=== PATIENT | male | born 1950 | race Caucasian/White ===

== ENCOUNTER → 2016-07-15 | Outpatient (REF) | payer MEDICARE, MEDICAID ==
[~2016-07-15] MED LIST: ACET500C PO; ALDA25TA2 PO; ATOR1TAB19 PO; CLAR10CA3 PO; DILA2TAB2 PO; DRIS50002 PO; FAMO20TA PO; FOLI1TAB2 PO; FURO40TA2 PO; LACT10SO29 PO; LACT20EL PO; LASI40TA PO; METO25TAB PO; METO50TA2 PO; NEUR100C PO; OXYC-517 PO; PANT40TA2 PO; PREG50CA PO; PYRI100T5 PO; SPIR100T PO; TYLE325T5 PO; VITA100T60 PO; VITA250T19 PO; VITA250T30 PO; VITMTA PO; VOLT1GEL24 TD; XIFA200T2 PO; XIFA550T PO; ZOFR20TA PO
[2016-07-15 11:57] LABS: ALBUMIN 2.6 GM/DL (3.2-5.2); ALBUMIN/GLOBULIN RATIO 0.68 (1.00-1.93); ALKALINE PHOSPHATASE 180 U/L (45-117); ALT/SGPT 24 U/L (12-78); ANION GAP 8 MEQ/L (8-16); AST/SGOT 38 U/L (15-37); BILIRUBIN,TOTAL 3.1 MG/DL (0.2-1.0); BLOOD UREA NITROGEN 11 MG/DL (7-18); CALCIUM LEVEL 9.2 MG/DL (8.8-10.2); CARBON DIOXIDE LEVEL 28 MEQ/L (21-32); CHLORIDE LEVEL 103 MEQ/L (98-107); GLOMERULAR FILTRATION RATE > 60.0 (>49); GLUCOSE, FASTING 152 MG/DL (80-110); POTASSIUM SERUM 4.8 MEQ/L (3.5-5.1); SODIUM LEVEL 139 MEQ/L (136-145); TOTAL PROTEIN 6.4 GM/DL (6.4-8.2)
== END ==
LOC: M SFHCLERA 09:51
PROVIDERS: ATTEND Family Medicine
DX: K72.90 Hepatic failure, unspecified without coma (principal)
CPT/HCPCS: 80053; 82140; G0463

== ENCOUNTER → 2016-07-21 | Outpatient (CLI) | payer MEDICARE, MEDICAID ==
--- NOTE | 2016-07-21 13:00 | REP ---
Right upper quadrant sonography: History: Cirrhosis, screening for malignancy. Comparison study CT examination from February 05, 2016. Findings: Scanning through the right upper quadrant of the abdomen demonstrates multiple shadowing calculi in the lumen of the gallbladder. There is some tenderness to scanning over the gallbladder. Its wall is slightly thickened at 0.35 centimeters. No pericholecystic fluid is seen. Common bile duct is at the upper range of normal measuring 0.7 cm. Liver is somewhat inhomogeneous. There is no visible ascites today. Pancreas is obscured by abdominal gas. There is a small cyst in the liver measuring 0.9 cm. There is a hypoechoic area adjacent to the gallbladder measuring 1.4 x 1.6 x 1.0 cm. This does not demonstrate enhanced through transmission and may be a solid lesion. There is no right renal abnormality. Right kidney measures 10.7 x 4.2 x 5.7 cm. Impression: 1.6 cm hypoechoic area in the right lobe of the liver adjacent to the gallbladder. This may be a small mass lesion. Consider repeat CT or MRI study. There is a small cyst in the left lobe. No ascites is visible today. Cholelithiasis. Signed by Jose Cruz Palma MD 07/21/2016 02:35 P
== END ==
LOC: M LRY 08:35
PROVIDERS: ATTEND Family Medicine
DX: K76.89 Other specified diseases of liver (principal); K80.20 Calculus of gallbladder without cholecystitis without obstruction

== ENCOUNTER → 2016-07-30 | Outpatient (CLI) | payer MEDICARE, MEDICAID ==
--- NOTE | 2016-07-30 16:08 | REP ---
MRI LIVER WITH AND WITH CONTRAST: TECHNIQUE: Coronal T2, axial T1, T2, T2 fat sat, in phase, out of phase, T1 fat sat, dynamic post-iv gadolinium axial T1 fat sat with the intravenous administration of 13 mL of gadolinium. Comparison is made with prior study of 10/23/2015. After the last MRI the patient had a negative biopsy. A recent ultrasound of the liver 07/21/2016 showed a possible mass near the gallbladder. The hyperechoic nodule on T1 weighed images on the prior study is no longer visualized. The liver is small in size than on the prior study. There are multiple tiny hypointense nodules seen throughout the liver all subcentimeter in size, both on T1 and T2 weighted images. These do not enhance. There is no suspicious enhancing mass seen after the intravenous administration of gadolinium. Spleen is normal in size with no intrinsic abnormality. The adrenals, pancreas and visualized kidneys appear unremarkable. I see no adenopathy or free fluid in the visualized abdomen. There is signal in the gallbladder compatible with sludge or stones. IMPRESSION: Findings compatible with cirrhosis of the liver. The liver appears small in size than on the prior study. The previously noted liver nodule near the gallbladder on the prior exam is not seen on the current study. The current exam shows multiple tiny subcentimeter nodules with signal and enhancement characteristics most consistent with regenerative nodules. No suspicious liver mass is seen. Signed by Jus Merino MD 07/31/2016 09:50 A
== END ==
LOC: M RAD 14:00
PROVIDERS: ATTEND Family Medicine
DX: K72.90 Hepatic failure, unspecified without coma (principal)
CPT/HCPCS: 74183; A9576

== ENCOUNTER → 2016-09-08 | Outpatient (CLI) | payer MEDICARE ==
--- NOTE | 2016-09-08 08:45 | REP ---
Clinical: Alcoholic cirrhosis. Technique: Real time perdue scale and color Doppler evaluation using curved array transducer. Findings: The liver appears heterogeneous and coarsened with vague sub centimeter nodular changes and sub centimeter cysts consistent with history of cirrhosis. No discrete significant hepatic lesion is identified by ultrasound. The gallbladder is contracted with multiple gallstones and demonstrates mild wall thickening without pericholecystic fluid. No biliary ductal dilatation is appreciated and the common bile duct measures 6 mm diameter. The spleen is essentially normal in contour, echogenicity and size measuring 10 cm in craniocaudal length. The bilateral kidneys demonstrate renovascular calcifications and cortical thinning with increased sinus fat compatible with chronic medical renal disease. No hydronephrosis. Right kidney measures 9.8 x 5.0 x 5.7 cm. Left kidney measures 10.7 x 5.7 x 5.7 cm. The aorta demonstrates atherosclerotic changes and measures 2.3 cm maximal diameter. Limited color evaluation and Doppler interrogation demonstrates abdominal varices including recanalized umbilical vein and suspected reversed flow in the splenic vein. Impression: Changes compatible with cirrhosis and portal venous hypertension. Cholelithiasis. Chronic medical renal disease. Signed by William Saleem MD 09/08/2016 08:37 A
== END ==
LOC: M RAD 07:19
PROVIDERS: ATTEND Internal Medicine Gastroenterology
DX: K80.20 Calculus of gallbladder without cholecystitis without obstruction (principal); N18.9 Chronic kidney disease, unspecified; K76.6 Portal hypertension; K70.30 Alcoholic cirrhosis of liver without ascites; D64.9 Anemia, unspecified; R94.5 Abnormal results of liver function studies; R63.5 Abnormal weight gain; I85.11 Secondary esophageal varices with bleeding; G93.40 Encephalopathy, unspecified

== ENCOUNTER → 2016-09-22 | Outpatient (REF) | payer MEDICARE, MEDICAID | LOC: M SFHCLERA 09:17 | PROVIDERS: ATTEND Family Medicine | DX: Z13.1 Encounter for screening for diabetes mellitus (principal); Z79.899 Other long term (current) drug therapy | CPT/HCPCS: 83036; G0463 ==

== ENCOUNTER → 2016-11-14 | Outpatient (REF) | payer MEDICARE, MEDICAID ==
[2016-11-14 14:03] LABS: CALCIUM LEVEL 9.2 MG/DL (8.8-10.2); CREATININE FOR GFR 2.06 MG/DL (0.70-1.30); GLOMERULAR FILTRATION RATE 34.6 (>49); POTASSIUM SERUM 4.1 MEQ/L (3.5-5.1)
== END ==
LOC: M SFHCLERA 11:16
PROVIDERS: ATTEND Family Medicine
DX: K72.90 Hepatic failure, unspecified without coma (principal); N17.9 Acute kidney failure, unspecified
CPT/HCPCS: 80048; 81001; 82140; G0463

== ENCOUNTER → 2016-11-19 | Outpatient (REF) | payer MEDICARE, MEDICAID ==
[2016-11-19 18:37] LABS: CALCIUM LEVEL 9.1 MG/DL (8.8-10.2); CREATININE FOR GFR 1.5 MG/DL (0.70-1.30); GLOMERULAR FILTRATION RATE 49.8 (>49); POTASSIUM SERUM 4.3 MEQ/L (3.5-5.1)
== END ==
LOC: M SFHCLERA 13:47
PROVIDERS: ATTEND Family Medicine
DX: N17.9 Acute kidney failure, unspecified (principal)

== ENCOUNTER → 2017-02-13 | Outpatient (CLI) | payer MEDICARE, MEDICAID ==
[~2017-02-13] MED LIST changes: -DILA2TAB2 PO; +DILA2TAB6 PO; -FOLI1TAB2 PO; +FOLI1TAB4 PO; +METO25TA4 PO; -METO50TA2 PO; +METO50TA7 PO; +VOLT1GEL15 TD; -VOLT1GEL24 TD
[2017-02-13 16:22] LABS: MEAN CORPUSCULAR HEMOGLOBIN 33.4 pg (27.0-33.0); MEAN CORPUSCULAR HGB CONC 34.5 g/dl (32.0-36.5); MEAN CORPUSCULAR VOLUME 96.7 fl (80.0-96.0); RED CELL DISTRIBUTION WIDTH 16.6 % (11.5-14.5)
== END ==
LOC: M LRY 10:17
PROVIDERS: ATTEND Internal Medicine Gastroenterology
DX: K70.30 Alcoholic cirrhosis of liver without ascites (principal); K72.90 Hepatic failure, unspecified without coma; L29.9 Pruritus, unspecified

== ENCOUNTER → 2017-03-23 | Outpatient (CLI) | payer MEDICARE, MEDICAID ==
[2017-03-23 12:36] LABS: MEAN CORPUSCULAR HGB CONC 34.7 g/dl (32.0-36.5); MEAN CORPUSCULAR VOLUME 95.2 fl (80.0-96.0); RED CELL DISTRIBUTION WIDTH 16.8 % (11.5-14.5); WHITE BLOOD COUNT 9.3 10^3/uL (4.0-10.0)
[2017-03-23 12:39] LABS: CALCIUM LEVEL 8.2 MG/DL (8.8-10.2); CREATININE FOR GFR 1.74 MG/DL (0.70-1.30); GLOMERULAR FILTRATION RATE 41.9 (>49); POTASSIUM SERUM 4.6 MEQ/L (3.5-5.1)
== END ==
LOC: M LRY 10:19
PROVIDERS: ATTEND Internal Medicine Gastroenterology
DX: K70.30 Alcoholic cirrhosis of liver without ascites (principal); K72.90 Hepatic failure, unspecified without coma; L29.9 Pruritus, unspecified; R94.5 Abnormal results of liver function studies

== ENCOUNTER → 2017-05-12 | Outpatient (CLI) | payer MEDICARE, MEDICAID ==
[2017-05-12 12:12] LABS: ALBUMIN 2.5 GM/DL (3.2-5.2); ALBUMIN/GLOBULIN RATIO 0.66 (1.00-1.93); BILIRUBIN,TOTAL 2.5 MG/DL (0.2-1.0); CALCIUM LEVEL 8.9 MG/DL (8.8-10.2); CREATININE FOR GFR 1.92 MG/DL (0.70-1.30); GLOMERULAR FILTRATION RATE 37.4 (>49); POTASSIUM SERUM 5.1 MEQ/L (3.5-5.1); TOTAL PROTEIN 6.3 GM/DL (6.4-8.2)
--- NOTE | 2017-05-12 13:49 | REP ---
Right upper quadrant sonography: History: End stage liver disease. Comparison study: September 08, 2016. Findings: Scanning through the right upper quadrant of the abdomen shows coarse liver texture as on prior study. There is a complex cystic area in the right lobe of the liver 1.0 cm in greatest diameter as seen previously. No other focal liver lesion is seen. The gallbladder shows slight gallbladder wall thickening. The gallbladder is partially contracted around multiple stones. There is a small quantity of fluid anterior to the liver consistent with minimal ascites. Common bile duct is normal measuring 0.6 cm in greatest diameter. Limited views of the pancreas show no abnormality. No right renal abnormality is seen. Right kidney measures 10.0 x 5.1 x 4.9 cm. Impression: Cholelithiasis with mild gallbladder wall thickening. Coarse liver texture. 1 cm right lobe hepatic cyst again seen. Otherwise negative. Signed by Jose Cruz Palma MD 05/12/2017 04:16 P
== END ==
LOC: M LRY 08:18
PROVIDERS: ATTEND Family Medicine
DX: K74.60 Unspecified cirrhosis of liver (principal)

== ENCOUNTER → 2017-05-22 | Outpatient (REF) | payer MEDICARE, MEDICAID ==
[2017-05-22 12:58] LABS: CALCIUM LEVEL 8.8 MG/DL (8.8-10.2); CREATININE FOR GFR 2.41 MG/DL (0.70-1.30); GLOMERULAR FILTRATION RATE 28.8 (>49); POTASSIUM SERUM 4.8 MEQ/L (3.5-5.1)
== END ==
LOC: M SFHCLERA 11:22
PROVIDERS: ATTEND Family Medicine
DX: K70.31 Alcoholic cirrhosis of liver with ascites (principal)

== ENCOUNTER → 2017-05-28 | Outpatient (REF) | payer MEDICARE, MEDICAID ==
[2017-05-28 20:58] LABS: CALCIUM LEVEL 8.8 MG/DL (8.8-10.2); CREATININE FOR GFR 2.05 MG/DL (0.70-1.30); GLOMERULAR FILTRATION RATE 34.7 (>49)
== END ==
LOC: M SFHCLERA 14:51
PROVIDERS: ATTEND Family Medicine
DX: K72.90 Hepatic failure, unspecified without coma (principal)

== ENCOUNTER → 2017-07-27 | Outpatient (CLI) | payer MEDICARE, MEDICAID ==
[2017-07-27 21:11] LABS: ALBUMIN 2.5 GM/DL (3.2-5.2); ALBUMIN/GLOBULIN RATIO 0.64 (1.00-1.93); ALKALINE PHOSPHATASE 242 U/L (45-117); ALT/SGPT 20 U/L (12-78); ANION GAP 8 MEQ/L (8-16); AST/SGOT 33 U/L (7-37); BILIRUBIN,TOTAL 2.5 MG/DL (0.2-1.0); BLOOD UREA NITROGEN 19 MG/DL (7-18); CALCIUM LEVEL 8.8 MG/DL (8.8-10.2); CARBON DIOXIDE LEVEL 27 MEQ/L (21-32); CHLORIDE LEVEL 104 MEQ/L (98-107); CREATININE FOR GFR 2.03 MG/DL (0.70-1.30); GLUCOSE, FASTING 143 MG/DL (70-100); POTASSIUM SERUM 3.9 MEQ/L (3.5-5.1); SODIUM LEVEL 139 MEQ/L (136-145); TOTAL PROTEIN 6.4 GM/DL (6.4-8.2)
[2017-07-27 21:16] LABS: INR 1.68; PROTHROMBIN TIME 20.3 SECONDS (12.4-14.5)
== END ==
LOC: M LRY 15:18
DX: K70.30 Alcoholic cirrhosis of liver without ascites (principal); K76.89 Other specified diseases of liver; K72.90 Hepatic failure, unspecified without coma; R63.5 Abnormal weight gain; R19.7 Diarrhea, unspecified
CPT/HCPCS: 80053

== ENCOUNTER → 2017-08-07 | Outpatient (REF) | payer MEDICARE, MEDICAID ==
[2017-08-07 17:14] LABS: ALBUMIN 2.4 GM/DL (3.2-5.2); ANION GAP 9 MEQ/L (8-16); BLOOD UREA NITROGEN 22 MG/DL (7-18); CALCIUM LEVEL 8.2 MG/DL (8.8-10.2); CARBON DIOXIDE LEVEL 29 MEQ/L (21-32); CHLORIDE LEVEL 101 MEQ/L (98-107); CREATININE FOR GFR 2.24 MG/DL (0.70-1.30); GLOMERULAR FILTRATION RATE 31.3 (>49); GLUCOSE, FASTING 167 MG/DL (70-100); PHOSPHORUS LEVEL 4.1 MG/DL (2.5-4.9); POTASSIUM SERUM 4.6 MEQ/L (3.5-5.1); SODIUM LEVEL 139 MEQ/L (136-145)
== END ==
LOC: M SFHCLERA 10:44
DX: K70.31 Alcoholic cirrhosis of liver with ascites (principal)
CPT/HCPCS: 80069

== ENCOUNTER → 2017-09-04 | Outpatient (REF) | payer MEDICARE, MEDICAID ==
[2017-09-04 16:34] LABS: ANION GAP 7 MEQ/L (8-16); BLOOD UREA NITROGEN 23 MG/DL (7-18); CALCIUM LEVEL 8.3 MG/DL (8.8-10.2); CARBON DIOXIDE LEVEL 29 MEQ/L (21-32); CHLORIDE LEVEL 104 MEQ/L (98-107); CREATININE FOR GFR 2.17 MG/DL (0.70-1.30); GLOMERULAR FILTRATION RATE 32.5 (>49); GLUCOSE, FASTING 157 MG/DL (70-100); POTASSIUM SERUM 4.2 MEQ/L (3.5-5.1); SODIUM LEVEL 140 MEQ/L (136-145)
== END ==
LOC: M SFHCLERA 11:20
DX: K72.90 Hepatic failure, unspecified without coma (principal)
CPT/HCPCS: 80048

== ENCOUNTER → 2017-09-14 | Outpatient (REF) | payer MEDICARE, MEDICAID ==
[2017-09-14 11:33] LABS: ESTIMATED AVERAGE GLUCOSE 77 MG/DL (60-110); HEMOGLOBIN A1c 4.3 %
[2017-09-14 11:48] LABS: INR 1.61; PROTHROMBIN TIME 19.6 SECONDS (12.4-14.5)
[2017-09-14 11:49] LABS: AMMONIA 73 uMOL/L (<32)
[2017-09-14 11:56] LABS: ALBUMIN 2.6 GM/DL (3.2-5.2); ALKALINE PHOSPHATASE 305 U/L (45-117); ALT/SGPT 17 U/L (12-78); ANION GAP 6 MEQ/L (8-16); AST/SGOT 29 U/L (7-37); BILIRUBIN,TOTAL 2.2 MG/DL (0.2-1.0); BLOOD UREA NITROGEN 20 MG/DL (7-18); CALCIUM LEVEL 8.9 MG/DL (8.8-10.2); CARBON DIOXIDE LEVEL 29 MEQ/L (21-32); CHLORIDE LEVEL 102 MEQ/L (98-107); GLOMERULAR FILTRATION RATE 33.7 (>49); GLUCOSE, FASTING 170 MG/DL (70-100); POTASSIUM SERUM 4.4 MEQ/L (3.5-5.1); SODIUM LEVEL 137 MEQ/L (136-145); TOTAL PROTEIN 6.3 GM/DL (6.4-8.2)
== END ==
LOC: M SFHCLERA 09:40
DX: K72.90 Hepatic failure, unspecified without coma (principal); Z13.1 Encounter for screening for diabetes mellitus; Z79.899 Other long term (current) drug therapy
CPT/HCPCS: 82140

== ENCOUNTER → 2017-10-21 | Outpatient (CLI) | payer MEDICARE, MEDICAID ==
[2017-10-21 17:03] LABS: ALBUMIN 2.4 GM/DL (3.2-5.2); ALBUMIN/GLOBULIN RATIO 0.62 (1.00-1.93); ALKALINE PHOSPHATASE 255 U/L (45-117); ALT/SGPT 18 U/L (12-78); ANION GAP 5 MEQ/L (8-16); AST/SGOT 26 U/L (7-37); BILIRUBIN,TOTAL 2.9 MG/DL (0.2-1.0); BLOOD UREA NITROGEN 11 MG/DL (7-18); CARBON DIOXIDE LEVEL 27 MEQ/L (21-32); CHLORIDE LEVEL 106 MEQ/L (98-107); CREATININE FOR GFR 1.68 MG/DL (0.70-1.30); GLOMERULAR FILTRATION RATE 43.6 (>49); GLUCOSE, FASTING 98 MG/DL (70-100); POTASSIUM SERUM 4.1 MEQ/L (3.5-5.1); SODIUM LEVEL 138 MEQ/L (136-145); TOTAL PROTEIN 6.3 GM/DL (6.4-8.2)
== END ==
LOC: M LRY 13:17
DX: K70.30 Alcoholic cirrhosis of liver without ascites (principal); K72.90 Hepatic failure, unspecified without coma; R63.5 Abnormal weight gain
CPT/HCPCS: 80053

== ENCOUNTER → 2017-11-26 | Outpatient (CLI) | payer MEDICARE, MEDICAID ==
[2017-11-26 16:55] LABS: ALBUMIN 2.7 GM/DL (3.2-5.2); ALBUMIN/GLOBULIN RATIO 0.71 (1.00-1.93); ALKALINE PHOSPHATASE 198 U/L (45-117); ALT/SGPT 21 U/L (12-78); ANION GAP 9 MEQ/L (8-16); AST/SGOT 33 U/L (7-37); BILIRUBIN,TOTAL 1.4 MG/DL (0.2-1.0); BLOOD UREA NITROGEN 16 MG/DL (7-18); CALCIUM LEVEL 8.5 MG/DL (8.8-10.2); CARBON DIOXIDE LEVEL 24 MEQ/L (21-32); CHLORIDE LEVEL 97 MEQ/L (98-107); GLOMERULAR FILTRATION RATE 40.3 (>49); GLUCOSE, FASTING 149 MG/DL (70-100); SODIUM LEVEL 130 MEQ/L (136-145); TOTAL PROTEIN 6.5 GM/DL (6.4-8.2)
[2017-11-26 17:00] LABS: POTASSIUM SERUM 5.5 MEQ/L (3.5-5.1)
== END ==
LOC: M LRY 10:32
DX: K70.30 Alcoholic cirrhosis of liver without ascites (principal); K72.90 Hepatic failure, unspecified without coma; R63.5 Abnormal weight gain; K80.20 Calculus of gallbladder without cholecystitis without obstruction
CPT/HCPCS: 80053

== ENCOUNTER → 2018-01-25 | Outpatient (CLI) | payer MEDICARE, MEDICAID ==
[2018-01-25 18:06] LABS: INR 1.42; PROTHROMBIN TIME 17.6 SECONDS (12.1-14.4)
[2018-01-25 18:11] LABS: ALBUMIN 2.8 GM/DL (3.2-5.2); ALKALINE PHOSPHATASE 156 U/L (45-117); ALT/SGPT 19 U/L (12-78); ANION GAP 9 MEQ/L (8-16); AST/SGOT 25 U/L (7-37); BILIRUBIN,TOTAL 1.3 MG/DL (0.2-1.0); BLOOD UREA NITROGEN 18 MG/DL (7-18); CALCIUM LEVEL 9.5 MG/DL (8.8-10.2); CARBON DIOXIDE LEVEL 23 MEQ/L (21-32); CHLORIDE LEVEL 100 MEQ/L (98-107); CREATININE FOR GFR 2.11 MG/DL (0.70-1.30); GLOMERULAR FILTRATION RATE 33.5 (>49); GLUCOSE, FASTING 139 MG/DL (70-100); SODIUM LEVEL 132 MEQ/L (136-145); TOTAL PROTEIN 6.3 GM/DL (6.4-8.2)
[2018-01-25 18:26] LABS: POTASSIUM SERUM 5.3 MEQ/L (3.5-5.1)
== END ==
LOC: M LRY 10:27
DX: K70.30 Alcoholic cirrhosis of liver without ascites (principal); R18.8 Other ascites; G93.40 Encephalopathy, unspecified
CPT/HCPCS: 80053

== ENCOUNTER → 2018-03-01 | Outpatient (CLI) | payer MEDICARE, MEDICAID | LOC: M LRY 09:57 | DX: K70.30 Alcoholic cirrhosis of liver without ascites (principal); R18.8 Other ascites; K72.90 Hepatic failure, unspecified without coma; Z53.9 Procedure and treatment not carried out, unspecified reason | CPT/HCPCS: 36415 ==

== ENCOUNTER → 2018-05-19 | Outpatient (CLI) | payer MEDICARE, MEDICAID ==
[2018-05-19 11:22] LABS: HEMATOCRIT 30.8 % (42.0-52.0); HEMOGLOBIN 10.6 g/dl (13.5-17.5); MEAN CORPUSCULAR HEMOGLOBIN 33.8 pg (27.0-33.0); MEAN CORPUSCULAR HGB CONC 34.4 g/dl (32.0-36.5); MEAN CORPUSCULAR VOLUME 98.1 fl (80.0-96.0); PLATELET COUNT, AUTOMATED 178 10^3/uL (150-450); RED BLOOD COUNT 3.14 10^6/uL (4.30-6.10); WHITE BLOOD COUNT 10.5 10^3/uL (4.0-10.0)
[2018-05-19 11:42] LABS: AMMONIA 84 uMOL/L (<32)
[2018-05-19 11:47] LABS: ALBUMIN 2.9 GM/DL (3.2-5.2); ALBUMIN/GLOBULIN RATIO 0.81 (1.00-1.93); ALKALINE PHOSPHATASE 220 U/L (45-117); ALT/SGPT 26 U/L (12-78); ANION GAP 10 MEQ/L (8-16); AST/SGOT 47 U/L (7-37); BILIRUBIN,TOTAL 1.1 MG/DL (0.2-1.0); BLOOD UREA NITROGEN 27 MG/DL (7-18); CARBON DIOXIDE LEVEL 27 MEQ/L (21-32); CHLORIDE LEVEL 98 MEQ/L (98-107); CREATININE FOR GFR 2.74 MG/DL (0.70-1.30); GLOMERULAR FILTRATION RATE 24.7 (>49); GLUCOSE, FASTING 147 MG/DL (70-100); POTASSIUM SERUM 4.8 MEQ/L (3.5-5.1); SODIUM LEVEL 135 MEQ/L (136-145); TOTAL PROTEIN 6.5 GM/DL (6.4-8.2)
== END ==
LOC: M LRY 10:02
DX: K70.30 Alcoholic cirrhosis of liver without ascites (principal); K72.90 Hepatic failure, unspecified without coma
CPT/HCPCS: 82140

== ENCOUNTER → 2018-05-25 | Outpatient (REF) | payer MEDICARE, MEDICAID ==
[2018-05-25 12:03] LABS: ANION GAP 7 MEQ/L (8-16); BLOOD UREA NITROGEN 13 MG/DL (7-18); CALCIUM LEVEL 8.2 MG/DL (8.8-10.2); CARBON DIOXIDE LEVEL 24 MEQ/L (21-32); CHLORIDE LEVEL 103 MEQ/L (98-107); CREATININE FOR GFR 1.95 MG/DL (0.70-1.30); GLOMERULAR FILTRATION RATE 36.6 (>49); GLUCOSE, FASTING 160 MG/DL (70-100); POTASSIUM SERUM 5.2 MEQ/L (3.5-5.1); SODIUM LEVEL 134 MEQ/L (136-145)
== END ==
LOC: M SFHCLERA 10:09
DX: K70.30 Alcoholic cirrhosis of liver without ascites (principal)
CPT/HCPCS: 80048

== ENCOUNTER → 2018-05-31 | Outpatient (CLI) | payer MEDICARE, MEDICAID ==
[~2018-05-31] MED LIST changes: -DRIS50002 PO; +DRIS50003 PO; -FOLI1TAB4 PO; +FOLI1TAB5 PO; -PANT40TA2 PO; +PANT40TA3 PO; -SPIR100T PO; +SPIR100T3 PO; -ZOFR20TA PO; +ZOFR4TAB16 PO
--- NOTE | 2018-06-02 08:12 | REP ---
Clinical: History of Cirrhosis with ascites and encephalopathy Comparison: 09/21/2017, 03/29/2016 Technique: Liver is heterogeneous consistent with underlying hepatocellular disease and no obvious focal hepatic lesion identified. The pancreas is incompletely evaluated due to interposed bowel gas. The spleen is normal in size, contour, and echogenicity measuring 11.0 cm in length without focal splenic lesion identified. The gallbladder demonstrates multiple gallstones and possible chronic wall thickening to 5 mm. There is evidence for varices including recanalized umbilical vein. The bilateral kidneys demonstrate increased central sinus fat suggesting chronic kidney disease. Right kidney measures 10.7 x 5.4 x 4.7 cm. Left kidney measures 11.2 x 4.8 x 5.3 cm. The abdominal aorta is incompletely evaluated due to interposed bowel gas. A small amount of lower abdominal ascites is identified. The bladder is unremarkable and currently measures 8.0 x 4.3 x 6.3 cm. Impression: 1. Hepatocellular disease/cirrhosis including suspected varices and small amount of ascites. 2. Cholelithiasis. Electronically Signed by William Saleem MD 06/02/2018 08:04 A
== END ==
LOC: M LRY 09:24
PROVIDERS: ATTEND Internal Medicine Gastroenterology
DX: K70.31 Alcoholic cirrhosis of liver with ascites (principal); K80.20 Calculus of gallbladder without cholecystitis without obstruction; G93.40 Encephalopathy, unspecified

== ENCOUNTER → 2018-06-21 | Outpatient (REF) | payer MEDICARE, MEDICAID ==
[~2018-06-21] MED LIST changes: +FOLI1TAB11 PO; -FOLI1TAB5 PO; -LASI40TA PO; +LASI40TA9 PO
[2018-06-21 12:06] LABS: CALCIUM LEVEL 8.7 MG/DL (8.8-10.2); CREATININE FOR GFR 1.59 MG/DL (0.70-1.30); GLOMERULAR FILTRATION RATE 46.3 (>49); POTASSIUM SERUM 4.4 MEQ/L (3.5-5.1)
== END ==
LOC: M SFHCLERA 08:58
PROVIDERS: ATTEND Family Medicine
DX: K70.31 Alcoholic cirrhosis of liver with ascites (principal)
CPT/HCPCS: 80048; G0463

== ENCOUNTER → 2018-09-21 | Outpatient (REF) | payer MEDICARE, MEDICAID ==
[~2018-09-21] MED LIST changes: +LACT10SO7 PO; -LACT20EL PO; +METO-346 PO; +METO1TAB63 PO; -METO25TAB PO
== END ==
LOC: M SFHCLERA 10:20
PROVIDERS: ATTEND Family Medicine
DX: K70.31 Alcoholic cirrhosis of liver with ascites (principal); Z53.8 Procedure and treatment not carried out for other reasons

== ENCOUNTER → 2018-10-18 | Outpatient (REF) | payer MEDICARE, MEDICAID ==
[2018-10-18 12:16] LABS: ALBUMIN 2.6 GM/DL (3.2-5.2); BILIRUBIN,TOTAL 1.6 MG/DL (0.2-1.0); CALCIUM LEVEL 8.7 MG/DL (8.8-10.2); CREATININE FOR GFR 1.67 MG/DL (0.70-1.30); GLOMERULAR FILTRATION RATE 43.8 (>49); POTASSIUM SERUM 4.7 MEQ/L (3.5-5.1); TOTAL PROTEIN 5.8 GM/DL (6.4-8.2)
[2018-10-18 12:23] LABS: FOLATE 4.4 NG/ML
== END ==
LOC: M SFHCLERA 10:35
PROVIDERS: ATTEND Family Medicine
DX: K70.31 Alcoholic cirrhosis of liver with ascites (principal)

== ENCOUNTER → 2018-10-18 | Outpatient (CLI) | payer MEDICARE, MEDICAID ==
--- NOTE | 2018-10-19 04:57 | REP ---
Clinical: Alcoholic cirrhosis. Technique: Real time perdue scale and color evaluation using curved array transducer. Findings: Liver demonstrates heterogeneous increased parenchymal echotexture suggesting underlying fatty infiltration and hepatocellular disease. 2.4 x 1.6 x 2.1 cm rounded focal lesion in the right lobe is identified which is otherwise nonspecific by current examination. Pancreas is incompletely evaluated due to interposed bowel gas and poor through transmission. Gallbladder demonstrates multiple gallstones with mild wall thickening. No biliary ductal dilatation is appreciated and the common bile duct measures 5.0 mm diameter. The right kidney is normal in reniform shape without hydronephrosis and measures 11.0 x 5.5 x 4.5 cm. No significant ascites. Previously identified recanalized umbilical vein not visualized on current exam. Impression: 1. Hepatocellular disease with discrete 2.4 cm rounded lesion in the right lobe cannot be further characterized by current ultrasound. 2. Cholelithiasis. Electronically Signed by William Saleem MD 10/19/2018 04:48 A
== END ==
LOC: M LRY 10:24
PROVIDERS: ATTEND Family Medicine
DX: K80.19 Calculus of gallbladder with other cholecystitis with obstruction (principal); K70.31 Alcoholic cirrhosis of liver with ascites

== ENCOUNTER → 2018-10-22 | Outpatient (REF) | payer MEDICARE, MEDICAID | LOC: M SFHCLERA 09:18 | PROVIDERS: ATTEND Family Medicine | DX: K70.31 Alcoholic cirrhosis of liver with ascites (principal); R73.9 Hyperglycemia, unspecified ==

== ENCOUNTER → 2018-10-25 | Outpatient (REF) | payer MEDICARE, MEDICAID | LOC: M SFHCLERA 11:21 | PROVIDERS: ATTEND Family Medicine | DX: R16.0 Hepatomegaly, not elsewhere classified (principal) ==

== ENCOUNTER → 2018-12-02 | Outpatient (CLI) | payer MEDICARE, MEDICAID ==
[~2018-12-02] MED LIST changes: +PROHANCE 279.3MG/ML 5ML VIAL (A9576) As Ordered ONE
--- NOTE | 2018-12-02 17:10 | REP ---
MRI LIVER WITH AND WITHOUT CONTRAST: TECHNIQUE: Multiple sequences obtained in the axial and coronal planes prior to and following the intravenous administration of approximately 10 mL ProHance. Comparison made with ultrasound 10/18/2018 which showed a hypoechoic nodule in the right lobe of the liver inferiorly measuring approximately 2.4 cm. Comparison is also made with prior MRI of 07/30/2016. The liver again demonstrates relatively small size and micronodular contour with diffuse heterogeneous internal signal and enhancement compatible with cirrhosis. Multiple tiny hypointense nodules which are subcentimeter in diameter are seen throughout the liver compatible with regenerative nodules. There is a dominant nodule which is somewhat exophytic in the inferior aspect of the right lobe of the liver demonstrating similar signal characteristics. With the intravenous administration of gadolinium there is no arterial phase enhancement. There is no evidence of a suspicious mass. Gallbladder demonstrates subcentimeter filling defects consistent with gallstones. There is no splenomegaly. The adrenals and pancreas are unremarkable. There is no biliary dilatation. The kidneys are unremarkable. There is no hydronephrosis. There is no adenopathy. There is a tiny amount of perihepatic ascites fluid. There is recanalization of the umbilical vein. IMPRESSION: Findings compatible with cirrhosis of the liver with diffuse regenerating nodules, subcentimeter in size. In the inferior aspect of the right lobe of the liver there is a somewhat exophytic nodule which is mildly lobulated and measures 1.8 x 1.2 cm. There is no arterial phase enhancement and therefore this is not suspicious for carcinoma. This likely represents a prominent regenerating nodule. This is new compared to the prior MRI. Recommend continued routine surveillance of the liver. Electronically Signed by Jus Merino MD 12/03/2018 09:25 A
== END ==
LOC: M RAD 13:00
PROVIDERS: ATTEND Family Medicine
DX: K76.89 Other specified diseases of liver (principal); R16.0 Hepatomegaly, not elsewhere classified
CPT/HCPCS: 74183; A9576

== ENCOUNTER 2019-01-27 09:38 | Emergency (ER) | payer MEDICARE, MEDICAID ==
[~2019-01-27] VITALS: Ht 170.2 cm; Wt 87.7 kg
[~2019-01-27 09:38] MED LIST changes: -PROHANCE 279.3MG/ML 5ML VIAL (A9576) As Ordered ONE
[2019-01-27 09:39] VITALS: BP 134/65
[2019-01-27] MEDS ORDERED: XIFA550T (09:59)
[2019-01-27] MEDS ORDERED: LACT10SO29 (09:59)
[2019-01-27] MEDS ORDERED: SPIR50TA4 (09:59)
[2019-01-27] MEDS ORDERED: METO1TAB87 (09:59)
[2019-01-27] MEDS ORDERED: FURO20TA2 (09:59)
== END 2019-01-27 10:34 | disposition home or self-care (01) ==
LOC: M ED 09:38
DX: L03.031 Cellulitis of right toe (principal); L60.0 Ingrowing nail; I10 Essential (primary) hypertension; K21.9 Gastro-esophageal reflux disease without esophagitis; K74.60 Unspecified cirrhosis of liver; M54.9 Dorsalgia, unspecified; Z79.899 Other long term (current) drug therapy

== ENCOUNTER → 2019-02-01 | Outpatient (REF) | payer OTHER, MEDICAID ==
[~2019-02-01] MED LIST changes: +FURO20TA2; +LACT10SO29; +METO1TAB87; +SPIR50TA4; +XIFA550T
[2019-02-01 12:28] LABS: BASO # 0.1 10^3/uL (0.0-0.2); BASO % 1.1 % (0.0-1.0); EOS # 0.3 10^3/uL (0.0-0.50); EOS % 3.1 % (0.0-3.0); HEMATOCRIT 31.5 % (42.0-52.0); HEMOGLOBIN 10.9 g/dl (13.5-17.5); LYMPH # 1.9 10^3/uL (1.5-4.5); LYMPH % 22.1 % (24.0-44.0); MEAN CORPUSCULAR HEMOGLOBIN 31.8 pg (27.0-33.0); MEAN CORPUSCULAR HGB CONC 34.6 g/dl (32.0-36.5); MEAN CORPUSCULAR VOLUME 91.8 fl (80.0-96.0); MONO # 0.8 10^3/uL (0.0-0.8); MONO % 9.8 % (0.0-5.0); NEUTROPHILS # 5.3 10^3/uL (1.8-7.7); NEUTROPHILS % 62.6 % (36.0-66.0); PLATELET COUNT, AUTOMATED 174 10^3/uL (150-450); RED BLOOD COUNT 3.43 10^6/uL (4.30-6.10); WHITE BLOOD COUNT 8.5 10^3/uL (4.0-10.0)
[2019-02-01 12:34] LABS: ALBUMIN 2.6 GM/DL (3.2-5.2); BILIRUBIN,TOTAL 1.6 MG/DL (0.2-1.0); CALCIUM LEVEL 9.3 MG/DL (8.8-10.2); CREATININE FOR GFR 1.65 MG/DL (0.70-1.30); GLOMERULAR FILTRATION RATE 44.4 (>49); POTASSIUM SERUM 4.5 MEQ/L (3.5-5.1)
[2019-02-01 12:40] LABS: INR 1.51; PROTHROMBIN TIME 17.9 SECONDS (11.8-14.0)
[2019-02-01 12:41] LABS: PARTIAL THROMBOPLASTIN TIME 42.9 SECONDS (25.0-38.4)
== END ==
LOC: M SFHCLERA 09:37
PROVIDERS: ATTEND Family Medicine
DX: K70.30 Alcoholic cirrhosis of liver without ascites (principal)

== ENCOUNTER → 2019-03-17 | Outpatient (REF) | payer MEDICARE, MEDICAID ==
[2019-03-17 12:21] LABS: ALBUMIN 2.5 GM/DL (3.2-5.2); BILIRUBIN,TOTAL 1.9 MG/DL (0.2-1.0); CREATININE FOR GFR 1.65 MG/DL (0.70-1.30); GLOMERULAR FILTRATION RATE 44.3 (>49); POTASSIUM SERUM 4.5 MEQ/L (3.5-5.1); TOTAL PROTEIN 6.1 GM/DL (6.4-8.2)
[2019-03-17 13:14] LABS: HEMOGLOBIN A1c 4.5 %
== END ==
LOC: M SFHCLERA 09:29
PROVIDERS: ATTEND Family Medicine
DX: K70.31 Alcoholic cirrhosis of liver with ascites (principal)

== ENCOUNTER → 2019-04-07 | Outpatient (CLI) | payer MEDICARE, MEDICAID ==
--- NOTE | 2019-04-08 13:28 | REP ---
Nickel: Alcoholic cirrhosis. Comparison: 05/31/2018 Technique: Real time perdue scale ultrasound examination using curved array transducer. Findings: Liver demonstrates coarsened echotexture and recanalized umbilical vein consistent with cirrhosis. There is a 7 mm cyst in the left lobe along with a 2.3 cm hypoechoic mass like nodule in the right lobe. The pancreas is incompletely evaluated due to interposed bowel gas. Gallbladder demonstrates multiple gallstones and gravel without wall thickening or pericholecystic fluid. No biliary ductal dilatation is appreciated and the common bile duct measures 4.5 mm diameter. The right kidney is normal in reniform shape without hydronephrosis and measures 10.4 x 4.7 x 5.7 cm. Chronic renal disease suggested. No ascites. Impression: 1. Findings consistent with cirrhosis including sub centimeter cyst and suspected regenerating nodule as defined by recent MRI dated 12/02/2018. 2. Cholelithiasis. 3. No ascites. Electronically Signed by William Saleem MD 04/08/2019 01:19 P
== END ==
LOC: M RAD 08:53
PROVIDERS: ATTEND Family Medicine
DX: K70.30 Alcoholic cirrhosis of liver without ascites (principal); K76.89 Other specified diseases of liver; K80.20 Calculus of gallbladder without cholecystitis without obstruction

== ENCOUNTER → 2019-05-17 | Outpatient (CLI) | payer MEDICARE, MEDICAID ==
[2019-05-17 14:32] LABS: ALBUMIN 2.5 GM/DL (3.2-5.2); BILIRUBIN,TOTAL 1.8 MG/DL (0.2-1.0); CALCIUM LEVEL 9.3 MG/DL (8.8-10.2); CREATININE FOR GFR 1.69 MG/DL (0.70-1.30); POTASSIUM SERUM 4.2 MEQ/L (3.5-5.1); TOTAL PROTEIN 6.2 GM/DL (6.4-8.2)
== END ==
LOC: M LRY 11:55
PROVIDERS: ATTEND Internal Medicine Gastroenterology
DX: K70.30 Alcoholic cirrhosis of liver without ascites (principal); R18.8 Other ascites; R19.7 Diarrhea, unspecified; G93.40 Encephalopathy, unspecified; K76.89 Other specified diseases of liver; K80.20 Calculus of gallbladder without cholecystitis without obstruction

== ENCOUNTER → 2019-08-23 | Outpatient (REF) | payer MEDICARE, MEDICAID ==
[2019-08-23 14:05] LABS: BASO # 0.1 10^3/uL (0.0-0.2); BASO % 1.6 % (0.0-1.0); EOS # 0.6 10^3/uL (0.0-0.5); EOS % 7.4 % (0.0-3.0); HEMATOCRIT 34.8 % (42.0-52.0); HEMOGLOBIN 11.9 g/dl (13.5-17.5); LYMPH # 2.3 10^3/uL (1.5-5.0); LYMPH % 30.7 % (24.0-44.0); MEAN CORPUSCULAR HEMOGLOBIN 32.6 pg (27.0-33.0); MEAN CORPUSCULAR HGB CONC 34.2 g/dl (32.0-36.5); MEAN CORPUSCULAR VOLUME 95.3 fl (80.0-96.0); MONO # 0.9 10^3/uL (0.0-0.8); MONO % 11.6 % (0.0-5.0); NEUTROPHILS # 3.6 10^3/uL (1.5-8.5); NEUTROPHILS % 47.6 % (36.0-66.0); PLATELET COUNT, AUTOMATED 153 10^3/uL (150-450); RED BLOOD COUNT 3.65 10^6/uL (4.30-6.10); WHITE BLOOD COUNT 7.6 10^3/uL (4.0-10.0)
[2019-08-23 14:29] LABS: ALBUMIN 2.6 GM/DL (3.2-5.2); BILIRUBIN,TOTAL 2.4 MG/DL (0.2-1.0); CREATININE FOR GFR 1.54 MG/DL (0.70-1.30); GLOMERULAR FILTRATION RATE 47.9 (>49); POTASSIUM SERUM 4.3 MEQ/L (3.5-5.1); TOTAL PROTEIN 6.5 GM/DL (6.4-8.2)
== END ==
LOC: M SFHCLERA 12:03
PROVIDERS: ATTEND Family Medicine
DX: K72.90 Hepatic failure, unspecified without coma (principal); Z23 Encounter for immunization
CPT/HCPCS: 80053; 82140; 85025; 90471; 90472; 90632; 90682; 90732; 90746; G0463

== ENCOUNTER → 2019-08-25 | Outpatient (CLI) | payer MEDICARE, MEDICAID ==
--- NOTE | 2019-08-25 16:45 | REP ---
Abdominal right upper quadrant ultrasound for cirrhosis: Comparison is 09/21/2017. There are multiple gallbladder calculi. This is unchanged. The gallbladder is contracted and the wall is thickened. This is similar to the prior study and may represent chronic gallbladder disease. There is no intrahepatic or extrahepatic biliary duct dilatation. The common duct measures 8.3 mm in diameter. The hepatic parenchyma is diffusely heterogeneous compatible with the clinical history of cirrhosis. The umbilical vein is patent. A solid nodule is again identified in the right lobe of the liver today measuring 3.0-0.2 x 2.8 cm, slightly larger than on the prior study. On an MRI examination dated 12/02/2018 there were multiple tiny hypodense nodules throughout the liver, some centimeter in size, compatible with regenerative nodules. These are not visible by ultrasound. The visualized areas of the pancreas are unremarkable. The right kidney is normal size measuring 11.2 x 6.0 x 5.1 cm and otherwise unremarkable. There is no calculus, hydronephrosis, cyst or mass. There is free fluid at the dome of the liver. Impression: There is known cirrhosis. The known solid liver right lobe mass is slightly increased in size. Additionally, by MRI there are known multiple small sub centimeter regenerative hepatic nodules. Cholelithiasis, unchanged. No biliary duct dilatation. Chronic gallbladder contraction with chronic low wall thickness. This may represent chronic gallbladder disease. Patent umbilical vein. Small volume of ascites at the hepatic dome. Electronically Signed by Jus Ravi MD 08/25/2019 04:37 P
== END ==
LOC: M RAD 07:32
PROVIDERS: ATTEND Family Medicine
DX: K74.60 Unspecified cirrhosis of liver (principal); K76.89 Other specified diseases of liver; K80.20 Calculus of gallbladder without cholecystitis without obstruction; R18.8 Other ascites

== ENCOUNTER → 2020-02-13 | Outpatient (REF) | payer MEDICARE, MEDICAID ==
[~2020-02-13] MED LIST changes: -LACT10SO29; -LACT10SO29 PO; +LACT20EL; +LACT20EL PO; +PANT40TA29 PO; -PANT40TA3 PO
[2020-02-13 14:17] LABS: ALBUMIN 2.4 GM/DL (3.2-5.2); BILIRUBIN,TOTAL 2.3 MG/DL (0.2-1.0); CALCIUM LEVEL 9.4 MG/DL (8.8-10.2); CREATININE FOR GFR 1.54 MG/DL (0.70-1.30); FREE T4 1.13 NG/DL (0.76-1.46); GLOMERULAR FILTRATION RATE 47.9 (>49); POTASSIUM SERUM 4.7 MEQ/L (3.5-5.1); THYROID STIMULATING HORMONE 3.86 uIU/ML (0.358-3.740); TOTAL PROTEIN 5.9 GM/DL (6.4-8.2)
[2020-02-13 14:19] LABS: BASO # 0.1 10^3/uL (0.0-0.2); BASO % 1.4 % (0.0-1.0); EOS # 0.4 10^3/uL (0.0-0.5); EOS % 5.9 % (0.0-3.0); HEMATOCRIT 32.5 % (42.0-52.0); HEMOGLOBIN 11.2 g/dl (13.5-17.5); LYMPH % 27.6 % (24.0-44.0); MEAN CORPUSCULAR HEMOGLOBIN 33.8 pg (27.0-33.0); MEAN CORPUSCULAR HGB CONC 34.5 g/dl (32.0-36.5); MEAN CORPUSCULAR VOLUME 98.2 fl (80.0-96.0); MONO # 0.5 10^3/uL (0.0-0.8); MONO % 7.1 % (0.0-5.0); NEUTROPHILS # 4.2 10^3/uL (1.5-8.5); PLATELET COUNT, AUTOMATED 144 10^3/uL (150-450); RED BLOOD COUNT 3.31 10^6/uL (4.30-6.10); WHITE BLOOD COUNT 7.3 10^3/uL (4.0-10.0)
== END ==
LOC: M SFHCLERA 12:50
PROVIDERS: ATTEND Family Medicine
DX: K74.60 Unspecified cirrhosis of liver (principal)

== ENCOUNTER → 2020-03-06 | Outpatient (CLI) | payer MEDICARE, MEDICAID ==
--- NOTE | 2020-03-15 16:56 | REP ---
LIVER ULTRASOUND CLINICAL: Alcoholic cirrhosis. COMPARISON: 08/25/2019. TECHNIQUE: Real-time perdue scale ultrasound examination using curved array transducer. FINDINGS: The liver again demonstrates a coarsened echotexture with nodular contour. A 6- mm benign appearing hepatic cyst in the left lobe is identified along with a stable hypoechoic mass in the right lobe measuring 3.0 x 2.3 x 2.7 cm and essentially unchanged. The pancreas is incompletely evaluated due to interposed bowel gas, but visualized portions appear normal. Gallbladder demonstrates multiple gallstones without wall thickening or pericholecystic fluid and no sonographic [place] sign. No biliary ductal dilatation is appreciated and the common bile duct measures 6.5 mm in diameter. The right kidney is normal in reniform shape without hydronephrosis and measures 10.9 x 5.5 x 5.6 cm. Color evaluations demonstrates a patent umbilical vein consistent with cirrhosis. No ascites. IMPRESSION: * Changes related to cirrhosis similar to prior examination. * Cholelithiasis. * Stable hypoechoic mass in the right lobe of the liver unchanged. MTDD
== END ==
LOC: M RAD 09:18
PROVIDERS: ATTEND Internal Medicine Gastroenterology
DX: K70.30 Alcoholic cirrhosis of liver without ascites (principal); R18.8 Other ascites; K80.20 Calculus of gallbladder without cholecystitis without obstruction; N18.9 Chronic kidney disease, unspecified

== ENCOUNTER → 2020-03-06 | Outpatient (CLI) | payer MEDICARE, MEDICAID ==
[2020-03-06 10:14] LABS: HEMATOCRIT 31.1 % (42.0-52.0); MEAN CORPUSCULAR HEMOGLOBIN 33.8 pg (27.0-33.0); MEAN CORPUSCULAR HGB CONC 35.4 g/dl (32.0-36.5); MEAN CORPUSCULAR VOLUME 95.7 fl (80.0-96.0); PLATELET COUNT, AUTOMATED 147 10^3/uL (150-450); RED BLOOD COUNT 3.25 10^6/uL (4.30-6.10); WHITE BLOOD COUNT 10.5 10^3/uL (4.0-10.0)
[2020-03-06 11:26] LABS: ALBUMIN 2.5 GM/DL (3.2-5.2); ALT/SGPT 44 U/L (12-78); BILIRUBIN,TOTAL 2.4 MG/DL (0.2-1.0); BLOOD UREA NITROGEN 8 MG/DL (7-18); CALCIUM LEVEL 8.7 MG/DL (8.8-10.2); CARBON DIOXIDE LEVEL 28 MEQ/L (21-32); CHLORIDE LEVEL 96 MEQ/L (98-107); GLOMERULAR FILTRATION RATE > 60.0 (>42); GLUCOSE, FASTING 95 MG/DL (70-100); POTASSIUM SERUM 4.3 MEQ/L (3.5-5.1); SODIUM LEVEL 130 MEQ/L (136-145); TOTAL PROTEIN 5.9 GM/DL (6.4-8.2)
== END ==
LOC: M LAB 09:22
PROVIDERS: ATTEND Internal Medicine Gastroenterology
DX: K70.30 Alcoholic cirrhosis of liver without ascites (principal); R18.8 Other ascites; K80.20 Calculus of gallbladder without cholecystitis without obstruction; N18.9 Chronic kidney disease, unspecified

== ENCOUNTER → 2020-07-26 | Outpatient (CLI) | payer MEDICARE, MEDICAID ==
[2020-07-26 14:24] LABS: APPEARANCE, URINE CLEAR (CLEAR); BACTERIA, URINE AUTO NEGATIVE (NEGATIVE); BILIRUBIN, URINE AUTO NEGATIVE (NEGATIVE); BLOOD, URINE BLOOD NEGATIVE (NEGATIVE); COLOR, URINE YELLOW (YELLOW); GLUCOSE, URINE (UA) AUTO NEGATIVE (NEGATIVE); KETONE, URINE AUTO NEGATIVE (NEGATIVE); LEUKOCYTE ESTERASE, URINE AUTO NEGATIVE (NEGATIVE); NITRITE, URINE AUTO NEGATIVE (NEGATIVE); PROTEIN, URINE AUTO NEGATIVE (NEGATIVE); RBC, URINE AUTO 0 /HPF (0-3); SQUAMOUS EPITHELIAL CELL UR AU 0 /HPF (0-6); UROBILINOGEN, URINE AUTO 0.2 mg/dL (0.0-2.0); WBC, URINE AUTO 0 /HPF (0-3)
[2020-07-26 14:29] LABS: BASO # 0.1 10^3/uL (0.0-0.2); BASO % 1.2 % (0.0-1.0); EOS # 0.4 10^3/uL (0.0-0.5); EOS % 4.8 % (0.0-3.0); HEMATOCRIT 31.6 % (42.0-52.0); HEMOGLOBIN 11.1 g/dl (13.5-17.5); LYMPH # 1.9 10^3/uL (1.5-5.0); LYMPH % 22.7 % (24.0-44.0); MEAN CORPUSCULAR HEMOGLOBIN 32.8 pg (27.0-33.0); MEAN CORPUSCULAR HGB CONC 35.1 g/dl (32.0-36.5); MEAN CORPUSCULAR VOLUME 93.5 fl (80.0-96.0); MONO # 0.9 10^3/uL (0.0-0.8); MONO % 11.1 % (0.0-5.0); NEUTROPHILS % 59.2 % (36.0-66.0); PLATELET COUNT, AUTOMATED 184 10^3/uL (150-450); RED BLOOD COUNT 3.38 10^6/uL (4.30-6.10); WHITE BLOOD COUNT 8.4 10^3/uL (4.0-10.0)
[2020-07-26 15:08] LABS: ALBUMIN 2.5 GM/DL (3.2-5.2); BILIRUBIN,TOTAL 2.1 MG/DL (0.2-1.0); CALCIUM LEVEL 11.1 MG/DL (8.8-10.2); CREATININE FOR GFR 1.46 MG/DL (0.70-1.30); GLOMERULAR FILTRATION RATE 50.8 (>42); POTASSIUM SERUM 4.8 MEQ/L (3.5-5.1); TOTAL PROTEIN 5.9 GM/DL (6.4-8.2)
[2020-07-26 16:46] LABS: PTH INTACT 7.4 PG/ML (18.5-88.0)
== END ==
LOC: M WUC 13:10
PROVIDERS: ATTEND Family Medicine
DX: E83.52 Hypercalcemia (principal); K70.31 Alcoholic cirrhosis of liver with ascites; R10.9 Unspecified abdominal pain
CPT/HCPCS: 36415; 80053; 81001; 82105; 82140; 82150; 83690; 83970; 85025; 87086; G0463

== ENCOUNTER → 2020-07-27 | Outpatient (CLI) | payer MEDICARE, MEDICAID ==
[2020-07-27 13:04] LABS: FREE T4 1.23 NG/DL (0.76-1.46); THYROID STIMULATING HORMONE 3.13 uIU/ML (0.358-3.740); TOTAL 25(OH) VITAMIN D 26.1 NG/ML (30.0-100.0)
== END ==
LOC: M WUC 10:24
PROVIDERS: ATTEND Family Medicine
DX: E83.52 Hypercalcemia (principal); K70.31 Alcoholic cirrhosis of liver with ascites; R10.9 Unspecified abdominal pain

== ENCOUNTER → 2020-08-16 | Outpatient (CLI) | payer MEDICARE, MEDICAID ==
[~2020-08-16] MED LIST changes: +GASTROGRAFIN SOLUTION 30ML (Q9963) As Ordered ONE; +ISOVUE-370 76% 100ML VIAL As Ordered ONE
--- NOTE | 2020-08-16 16:44 | REP ---
INDICATION: EPIGASTRIC PAIN. COMPARISON: 02/05/2016 TECHNIQUE: Axial contrast-enhanced images from the lung bases to the pubic symphysis using oral and 100 cc Isovue 370 intravenous contrast material. Coronal and sagittal reformations obtained. This CT examination was performed using the following dose reduction techniques: Automated exposure control, adjustment of mA and/or kv according to the patient's size, and the use of iterative reconstruction technique. FINDINGS: Evidence for cirrhosis and portal hypertension including small amount of ascites, portosystemic shunting and recanalized umbilical vein. No obvious focal hepatic lesion identified. Spleen, pancreas, bilateral adrenal glands and kidneys are essentially normal. Cholelithiasis noted without acute cholecystitis. The enteric system is without obstruction or acute inflammatory process. Normal terminal ileum, cecum and appendix identified in the right lower quadrant. Diverticulosis noted without acute diverticulitis.. Pelvis demonstrates normal bladder and age-appropriate prostate/seminal vesicles. No free air. No intraperitoneal or retroperitoneal adenopathy. Atherosclerotic changes noted without abdominal aortic aneurysm or dissection. Skeletal structures demonstrate degenerative changes without acute osseous abnormality. IMPRESSION: 1. Cirrhosis including recanalized umbilical vein, portosystemic shunting and small amount of ascites. 2. Cholelithiasis. 3. Diverticulosis. <Electronically signed by William Saleem > 08/16/20 [id number]
== END ==
LOC: M RAD 14:52
PROVIDERS: ATTEND Family Medicine
DX: K74.60 Unspecified cirrhosis of liver (principal); K80.20 Calculus of gallbladder without cholecystitis without obstruction; R10.13 Epigastric pain
CPT/HCPCS: 74177; Q9963; Q9967

== ENCOUNTER → 2020-09-05 | Outpatient (CLI) | payer MEDICARE, MEDICAID ==
[~2020-09-05] MED LIST changes: -GASTROGRAFIN SOLUTION 30ML (Q9963) As Ordered ONE; -ISOVUE-370 76% 100ML VIAL As Ordered ONE
[2020-09-05 16:00] LABS: HEMATOCRIT 31.4 % (42.0-52.0); HEMOGLOBIN 10.9 g/dl (13.5-17.5); MEAN CORPUSCULAR HEMOGLOBIN 32.2 pg (27.0-33.0); MEAN CORPUSCULAR HGB CONC 34.7 g/dl (32.0-36.5); MEAN CORPUSCULAR VOLUME 92.6 fl (80.0-96.0); PLATELET COUNT, AUTOMATED 167 10^3/uL (150-450); RED BLOOD COUNT 3.39 10^6/uL (4.30-6.10); WHITE BLOOD COUNT 8.4 10^3/uL (4.0-10.0)
[2020-09-05 16:10] LABS: INR 1.48; PROTHROMBIN TIME 18.3 SECONDS (12.5-14.3)
[2020-09-05 16:24] LABS: ALBUMIN 2.5 GM/DL (3.2-5.2); BILIRUBIN,TOTAL 1.7 MG/DL (0.2-1.0); CALCIUM LEVEL 9.1 MG/DL (8.8-10.2); CREATININE FOR GFR 1.49 MG/DL (0.70-1.30); GLOMERULAR FILTRATION RATE 49.6 (>42); POTASSIUM SERUM 4.8 MEQ/L (3.5-5.1); TOTAL PROTEIN 5.6 GM/DL (6.4-8.2)
== END ==
LOC: M WUC 15:00
PROVIDERS: ATTEND Internal Medicine Gastroenterology
DX: K70.30 Alcoholic cirrhosis of liver without ascites (principal); R18.8 Other ascites; G93.40 Encephalopathy, unspecified

== ENCOUNTER → 2020-10-17 | Outpatient (REF) | payer MEDICARE, MEDICAID ==
[~2020-10-17] MED LIST changes: +CIPR-249 PO; -LACT20EL; -METO1TAB87; +METO1TAB87 PO; +PHYT5TA PO; -SPIR50TA4; +SPIR50TA4 PO; +SUCR1TA PO; +TORS20TA2 PO; +VITA400C53 PO; -XIFA550T
== END ==
LOC: M LAB REF 17:02
PROVIDERS: ATTEND Internal Medicine Nephrology
DX: K70.31 Alcoholic cirrhosis of liver with ascites (principal)

== ENCOUNTER → 2020-10-24 | Outpatient (CLI) | payer MEDICARE, MEDICAID ==
[2020-10-24 12:19] LABS: HEMATOCRIT 34.8 % (42.0-52.0); HEMOGLOBIN 11.9 g/dl (13.5-17.5); MEAN CORPUSCULAR HEMOGLOBIN 31.2 pg (27.0-33.0); MEAN CORPUSCULAR HGB CONC 34.2 g/dl (32.0-36.5); MEAN CORPUSCULAR VOLUME 91.3 fl (80.0-96.0); PLATELET COUNT, AUTOMATED 190 10^3/uL (150-450); RED BLOOD COUNT 3.81 10^6/uL (4.30-6.10); WHITE BLOOD COUNT 9.4 10^3/uL (4.0-10.0)
[2020-10-24 12:31] LABS: INR 1.57; PROTHROMBIN TIME 19.1 SECONDS (12.5-14.3)
[2020-10-24 12:41] LABS: ALBUMIN 3.2 GM/DL (3.2-5.2); CALCIUM LEVEL 9.8 MG/DL (8.8-10.2); CREATININE FOR GFR 2.07 MG/DL (0.70-1.30); POTASSIUM SERUM 3.2 MEQ/L (3.5-5.1)
== END ==
LOC: M WUC 09:53
PROVIDERS: ATTEND Internal Medicine Gastroenterology
DX: K70.30 Alcoholic cirrhosis of liver without ascites (principal); R18.8 Other ascites; D64.9 Anemia, unspecified

== ENCOUNTER → 2020-12-06 | Outpatient (CLI) | payer MEDICARE, MEDICAID ==
[2020-12-06 13:21] LABS: HEMATOCRIT 29.4 % (42.0-52.0); HEMOGLOBIN 9.9 g/dl (13.5-17.5); MEAN CORPUSCULAR HEMOGLOBIN 33.3 pg (27.0-33.0); MEAN CORPUSCULAR HGB CONC 33.7 g/dl (32.0-36.5); PLATELET COUNT, AUTOMATED 116 10^3/uL (150-450); RED BLOOD COUNT 2.97 10^6/uL (4.30-6.10); WHITE BLOOD COUNT 6.1 10^3/uL (4.0-10.0)
[2020-12-06 13:31] LABS: INR 1.77
[2020-12-06 13:50] LABS: ALBUMIN 2.5 GM/DL (3.2-5.2); BILIRUBIN,TOTAL 2.6 MG/DL (0.2-1.0); CALCIUM LEVEL 9.3 MG/DL (8.8-10.2); CREATININE FOR GFR 1.4 MG/DL (0.70-1.30); GLOMERULAR FILTRATION RATE 53.3 (>42); POTASSIUM SERUM 3.8 MEQ/L (3.5-5.1); TOTAL PROTEIN 5.5 GM/DL (6.4-8.2)
== END ==
LOC: M WUC 09:37
PROVIDERS: ATTEND Internal Medicine Gastroenterology
DX: K74.60 Unspecified cirrhosis of liver (principal)

== ENCOUNTER → 2020-12-26 | Outpatient (CLI) | payer MEDICARE, MEDICAID ==
[2020-12-26 11:45] LABS: HEMOGLOBIN 10.3 g/dl (13.5-17.5); MEAN CORPUSCULAR HEMOGLOBIN 34.1 pg (27.0-33.0); MEAN CORPUSCULAR HGB CONC 34.3 g/dl (32.0-36.5); MEAN CORPUSCULAR VOLUME 99.3 fl (80.0-96.0); PLATELET COUNT, AUTOMATED 121 10^3/uL (150-450); RED BLOOD COUNT 3.02 10^6/uL (4.30-6.10); WHITE BLOOD COUNT 6.5 10^3/uL (4.0-10.0)
[2020-12-26 13:08] LABS: CREATININE FOR GFR 1.36 MG/DL (0.70-1.30); GLOMERULAR FILTRATION RATE 55.2 (>42); POTASSIUM SERUM 4.2 MEQ/L (3.5-5.1)
== END ==
LOC: M WUC 09:59
PROVIDERS: ATTEND Internal Medicine Gastroenterology
DX: K70.30 Alcoholic cirrhosis of liver without ascites (principal); I85.00 Esophageal varices without bleeding; G93.40 Encephalopathy, unspecified; R18.8 Other ascites; K25.9 Gastric ulcer, unspecified as acute or chronic, without hemorrhage or perforation

== ENCOUNTER → 2021-02-11 | Outpatient (REF) | payer MEDICARE, MEDICAID | LOC: M LAB REF 16:55 | PROVIDERS: ATTEND Internal Medicine Nephrology | DX: E83.42 Hypomagnesemia (principal) ==

== ENCOUNTER → 2021-03-12 | Outpatient (CLI) | payer MEDICARE, MEDICAID ==
[2021-03-12 10:26] LABS: HEMATOCRIT 26.9 % (42.0-52.0); MEAN CORPUSCULAR HEMOGLOBIN 38.9 pg (27.0-33.0); MEAN CORPUSCULAR VOLUME 104.7 fl (80.0-96.0); RED BLOOD COUNT 2.57 10^6/uL (4.30-6.10); WHITE BLOOD COUNT 4.4 10^3/uL (4.0-10.0)
[2021-03-12 11:02] LABS: ALBUMIN 2.6 GM/DL (3.2-5.2); BILIRUBIN,TOTAL 2.4 MG/DL (0.2-1.0); CALCIUM LEVEL 9.2 MG/DL (8.8-10.2); CREATININE FOR GFR 1.46 MG/DL (0.70-1.30); GLOMERULAR FILTRATION RATE 50.7 (>42); POTASSIUM SERUM 4.9 MEQ/L (3.5-5.1); TOTAL PROTEIN 5.7 GM/DL (6.4-8.2)
[2021-03-12 11:11] LABS: TOTAL 25(OH) VITAMIN D 25.6 NG/ML (30.0-100.0)
[2021-03-12 11:16] LABS: PLATELET COUNT, AUTOMATED 87 10^3/uL (150-450)
[2021-03-12 11:17] LABS: MEAN CORPUSCULAR HGB CONC 37.2 g/dl (32.0-36.5)
[2021-03-12 11:20] LABS: ANISOCYTOSIS 1+; ATYPICAL LYMPH 2 % (0-5); BASOPHILS 1 % (0-1); EOSINOPHILS 1 % (0-3); LYMPHOCYTES 32 % (16-44); MONOCYTES 8 % (0-5); NEUTROPHILS 56 % (28-66); OVALOCYTES 1+; PLATELET ESTIMATE DECREASED (NORMAL); POIKILOCYTOSIS 1+
== END ==
LOC: M LAB 09:42
PROVIDERS: ATTEND Student in an Organized Health Care Education/Training Program
DX: K72.90 Hepatic failure, unspecified without coma (principal)

== ENCOUNTER → 2021-03-13 | Outpatient (CLI) | payer MEDICARE, MEDICAID ==
[2021-03-13 16:37] LABS: CALCIUM LEVEL 8.8 MG/DL (8.8-10.2); CREATININE FOR GFR 1.44 MG/DL (0.70-1.30); GLOMERULAR FILTRATION RATE 51.5 (>42); POTASSIUM SERUM 4.8 MEQ/L (3.5-5.1)
== END ==
LOC: M WUC 14:41
PROVIDERS: ATTEND Student in an Organized Health Care Education/Training Program
DX: E87.1 Hypo-osmolality and hyponatremia (principal)

== ENCOUNTER → 2021-03-19 | Outpatient (CLI) | payer MEDICARE, MEDICAID ==
--- NOTE | 2021-03-19 08:46 | REP ---
INDICATION: CIRRHOSIS COMPARISON: 03/06/2020 TECHNIQUE: Real time perdue scale ultrasound examination using curved array transducer. FINDINGS: Liver is heterogeneous and includes a 4.4 x 4.4 x 3.8 cm solid-appearing mass within the right lobe. Small amount of perihepatic free fluid identified. Pancreas is incompletely evaluated due to interposed bowel gas. The gallbladder includes multiple mobile gallstones without wall thickening or pericholecystic fluid. No biliary ductal dilatation is appreciated and the common bile duct measures 5.0 mm diameter. Right kidney is normal in reniform shape without hydronephrosis and measures 10.1 x 4.6 x 5.6 cm. IMPRESSION: 1. Evidence for cirrhosis with suspicious 4.4 cm area in the right hepatic lobe concerning for mass. Pre and postcontrast CT of the abdomen is recommended for further investigation <Electronically signed by William Saleem > 03/19/21 [id number]
== END ==
LOC: M RAD 08:07
PROVIDERS: ATTEND Student in an Organized Health Care Education/Training Program
DX: K72.90 Hepatic failure, unspecified without coma (principal); K76.89 Other specified diseases of liver; K80.20 Calculus of gallbladder without cholecystitis without obstruction

== ENCOUNTER → 2021-04-01 | Outpatient (CLI) | payer MEDICARE, MEDICAID ==
[2021-04-01 12:46] LABS: CALCIUM LEVEL 8.9 MG/DL (8.8-10.2); CREATININE FOR GFR 1.34 MG/DL (0.70-1.30); GLOMERULAR FILTRATION RATE 55.9 (>42); POTASSIUM SERUM 4.7 MEQ/L (3.5-5.1)
== END ==
LOC: M WUC 10:54
PROVIDERS: ATTEND Student in an Organized Health Care Education/Training Program
DX: E87.1 Hypo-osmolality and hyponatremia (principal)

== ENCOUNTER → 2021-04-09 | Outpatient (CLI) | payer MEDICARE, MEDICAID ==
[~2021-04-09] MED LIST changes: +ISOVUE-370 76% 100ML VIAL As Ordered ONE
--- NOTE | 2021-04-09 10:33 | REP ---
INDICATION: RT LOBE LIVER MASS. COMPARISON: Multiple the latest 10/07/2020 TECHNIQUE: Standard helical technique before and after 100 cc of Isovue 370 administered intravenously. No oral bowel preparatory contrast was administered. FINDINGS: The left pleural effusions seen on the prior examination is stable. There is a new small right pleural effusion. The pre contrast enhanced portion examination shows no change in hepatic and splenic densities. There is an unchanged nodular hepatic surface. There is cholelithiasis status quo. There are tiny nephroliths at the corticomedullary junctions bilaterally status quo. There is no obstructive phenomena. The contrast-enhanced portion of the examination shows a new mass arising from the posterior segment of the right lobe of the liver projecting medially and measuring approximately 4.5 x 3.3 by 3.8 cm. This has mild heterogeneous enhancement. The spleen, pancreas, adrenal glands, and kidneys are unchanged. Note is again made of portal hypertension with splenorenal varices and recanalization of the umbilical vein status quo. The amount of free fluid seen in the abdomen has increased from the latest prior CT of 10/07/2020. There is no significant change in appearance of the bowel loops or the mesenteries. There is no significant change in appearance of the imaged osseous structures. IMPRESSION: 1. There is a new liver mass as described above concerning for neoplasm. A regenerating nodule cannot be completely ruled out. 2. Increased ascites. 3. Evidence of cirrhosis as described above. 4. Renal calculi as described above. 5. Pleural effusions as described above. 6. Other findings as described above. <Electronically signed by Jovany Corey > 04/09/21 [id number]
== END ==
LOC: M RAD 09:28
PROVIDERS: ATTEND Student in an Organized Health Care Education/Training Program
DX: R16.0 Hepatomegaly, not elsewhere classified (principal); J90 Pleural effusion, not elsewhere classified; K80.20 Calculus of gallbladder without cholecystitis without obstruction; K76.89 Other specified diseases of liver; K76.6 Portal hypertension; R18.8 Other ascites; N20.0 Calculus of kidney
CPT/HCPCS: 74178; Q9967

== ENCOUNTER → 2021-04-18 | Outpatient (REF) | payer MEDICARE, MEDICAID ==
[~2021-04-18] MED LIST changes: -ISOVUE-370 76% 100ML VIAL As Ordered ONE
== END ==
LOC: M LAB REF 12:50
PROVIDERS: ATTEND Nurse Practitioner Family
DX: N18.31 Chronic kidney disease, stage 3a (principal)

== ENCOUNTER → 2021-06-26 | Outpatient (CLI) | payer MEDICARE, MEDICAID ==
[2021-06-26 12:11] LABS: HEMATOCRIT 28.7 % (42.0-52.0); HEMOGLOBIN 9.9 g/dl (13.5-17.5); MEAN CORPUSCULAR HEMOGLOBIN 36.8 pg (27.0-33.0); MEAN CORPUSCULAR HGB CONC 34.5 g/dl (32.0-36.5); MEAN CORPUSCULAR VOLUME 106.7 fl (80.0-96.0); PLATELET COUNT, AUTOMATED 126 10^3/uL (150-450); RED BLOOD COUNT 2.69 10^6/uL (4.30-6.10); WHITE BLOOD COUNT 5.7 10^3/uL (4.0-10.0)
[2021-06-26 13:22] LABS: ALBUMIN 2.6 GM/DL (3.2-5.2); ALT/SGPT 25 U/L (12-78); BILIRUBIN,TOTAL 1.4 MG/DL (0.2-1.0); BLOOD UREA NITROGEN 14 MG/DL (7-18); CALCIUM LEVEL 8.9 MG/DL (8.8-10.2); CARBON DIOXIDE LEVEL 23 MEQ/L (21-32); CHLORIDE LEVEL 105 MEQ/L (98-107); CREATININE FOR GFR 1.16 MG/DL (0.70-1.30); GLOMERULAR FILTRATION RATE > 60.0 (>42); GLUCOSE, FASTING 130 MG/DL (70-100); POTASSIUM SERUM 4.3 MEQ/L (3.5-5.1); SODIUM LEVEL 134 MEQ/L (136-145); TOTAL PROTEIN 5.8 GM/DL (6.4-8.2)
== END ==
LOC: M WUC 11:23
PROVIDERS: ATTEND Radiology Vascular & Interventional Radiology
DX: C22.0 Liver cell carcinoma (principal)

== ENCOUNTER → 2021-07-25 | Outpatient (CLI) | payer MEDICARE, MEDICAID ==
[2021-07-25 13:00] LABS: HEMATOCRIT 27.6 % (42.0-52.0); HEMOGLOBIN 9.6 g/dl (13.5-17.5); MEAN CORPUSCULAR HGB CONC 34.8 g/dl (32.0-36.5); MEAN CORPUSCULAR VOLUME 103.4 fl (80.0-96.0); PLATELET COUNT, AUTOMATED 127 10^3/uL (150-450); RED BLOOD COUNT 2.67 10^6/uL (4.30-6.10); WHITE BLOOD COUNT 4.9 10^3/uL (4.0-10.0)
[2021-07-25 13:36] LABS: ALBUMIN 2.7 GM/DL (3.2-5.2); ALT/SGPT 28 U/L (12-78); BILIRUBIN,TOTAL 1.3 MG/DL (0.2-1.0); BLOOD UREA NITROGEN 18 MG/DL (7-18); CALCIUM LEVEL 9.1 MG/DL (8.8-10.2); CARBON DIOXIDE LEVEL 25 MEQ/L (21-32); CHLORIDE LEVEL 110 MEQ/L (98-107); CREATININE FOR GFR 1.17 MG/DL (0.70-1.30); GLOMERULAR FILTRATION RATE > 60.0 (>42); GLUCOSE, FASTING 122 MG/DL (70-100); POTASSIUM SERUM 4.6 MEQ/L (3.5-5.1); SODIUM LEVEL 139 MEQ/L (136-145); TOTAL PROTEIN 5.7 GM/DL (6.4-8.2)
== END ==
LOC: M WUC 09:57
PROVIDERS: ATTEND Internal Medicine Gastroenterology
DX: K70.30 Alcoholic cirrhosis of liver without ascites (principal); R18.8 Other ascites; R16.0 Hepatomegaly, not elsewhere classified

== ENCOUNTER → 2021-07-26 | Outpatient (CLI) | payer MEDICARE, MEDICAID | LOC: M WUC 10:18 | PROVIDERS: ATTEND Internal Medicine Gastroenterology | DX: K70.30 Alcoholic cirrhosis of liver without ascites (principal); R18.8 Other ascites; R16.0 Hepatomegaly, not elsewhere classified ==

== ENCOUNTER → 2021-12-30 | Outpatient (CLI) | payer MEDICARE, MEDICAID ==
[~2021-12-30] MED LIST changes: +ISOVUE-370 76% 100ML VIAL As Ordered ONE
== END ==
LOC: M RAD 12:04
PROVIDERS: ATTEND Radiology Vascular & Interventional Radiology
DX: C22.0 Liver cell carcinoma (principal); R93.2 Abnormal findings on diagnostic imaging of liver and biliary tract; K80.20 Calculus of gallbladder without cholecystitis without obstruction
CPT/HCPCS: 74170; Q9967

== ENCOUNTER → 2022-01-22 | Outpatient (CLI) | payer MEDICARE, MEDICAID ==
[~2022-01-22] MED LIST changes: -ISOVUE-370 76% 100ML VIAL As Ordered ONE
[2022-01-22 12:51] LABS: BASO % 0.5 % (0.0-1.0); EOS # 0.1 10^3/uL (0.0-0.5); EOS % 1.6 % (0.0-3.0); HEMOGLOBIN 9.7 g/dl (13.5-17.5); LYMPH # 1.2 10^3/uL (1.5-5.0); LYMPH % 21.3 % (24.0-44.0); MEAN CORPUSCULAR HEMOGLOBIN 36.5 pg (27.0-33.0); MEAN CORPUSCULAR HGB CONC 34.6 g/dl (32.0-36.5); MEAN CORPUSCULAR VOLUME 105.3 fl (80.0-96.0); MONO # 0.7 10^3/uL (0.0-0.8); MONO % 11.8 % (2.0-8.0); NEUTROPHILS # 3.5 10^3/uL (1.5-8.5); NEUTROPHILS % 64.1 % (36.0-66.0); PLATELET COUNT, AUTOMATED 114 10^3/uL (150-450); RED BLOOD COUNT 2.66 10^6/uL (4.30-6.10); WHITE BLOOD COUNT 5.5 10^3/uL (4.0-10.0)
[2022-01-22 14:07] LABS: BLOOD UREA NITROGEN 12 MG/DL (7-18); CALCIUM LEVEL 8.5 MG/DL (8.8-10.2); CARBON DIOXIDE LEVEL 25 MEQ/L (21-32); CHLORIDE LEVEL 102 MEQ/L (98-107); CREATININE FOR GFR 1.16 MG/DL (0.70-1.30); GLOMERULAR FILTRATION RATE > 60.0 (>42); GLUCOSE, FASTING 131 MG/DL (70-100); POTASSIUM SERUM 4.6 MEQ/L (3.5-5.1); SODIUM LEVEL 132 MEQ/L (136-145)
== END ==
LOC: M WUC 10:48
PROVIDERS: ATTEND Student in an Organized Health Care Education/Training Program
DX: K72.90 Hepatic failure, unspecified without coma (principal)

== ENCOUNTER → 2022-08-19 | Outpatient (CLI) | payer MEDICARE, MEDICAID ==
[2022-08-19 14:18] LABS: BASO # 0.1 10^3/uL (0.0-0.2); EOS # 0.1 10^3/uL (0.0-0.5); EOS % 1.6 % (0.0-3.0); HEMATOCRIT 31.3 % (42.0-52.0); HEMOGLOBIN 10.5 g/dl (13.5-17.5); LYMPH # 1.2 10^3/uL (1.5-5.0); LYMPH % 24.2 % (24.0-44.0); MEAN CORPUSCULAR HGB CONC 33.5 g/dl (32.0-36.5); MEAN CORPUSCULAR VOLUME 107.2 fl (80.0-96.0); MONO # 0.5 10^3/uL (0.0-0.8); NEUTROPHILS # 3.1 10^3/uL (1.5-8.5); NEUTROPHILS % 62.6 % (36.0-66.0); PLATELET COUNT, AUTOMATED 126 10^3/uL (150-450); RED BLOOD COUNT 2.92 10^6/uL (4.30-6.10); WHITE BLOOD COUNT 4.9 10^3/uL (4.0-10.0)
[2022-08-19 14:54] LABS: ALBUMIN 2.8 G/DL (3.2-5.2); BILIRUBIN,TOTAL 2.1 MG/DL (0.3-1.2); CALCIUM LEVEL 8.8 MG/DL (8.3-10.6); CREATININE FOR GFR 1.27 MG/DL (0.70-1.30); GLOMERULAR FILTRATION RATE 59.3 (>42); POTASSIUM SERUM 4.4 MMOL/L (3.5-5.1); TOTAL PROTEIN 5.8 G/DL (5.7-8.2)
[2022-08-19 15:08] LABS: CA19-9 TUMOR MARKER,CARBOHYDRA 28.1 U/ML (<35.0)
== END ==
LOC: M WUC 09:52
PROVIDERS: ATTEND Nurse Practitioner Family
DX: C22.0 Liver cell carcinoma (principal)

== ENCOUNTER → 2022-11-03 | Outpatient (CLI) | payer MEDICARE, MEDICAID ==
[2022-11-03 10:40] LABS: BASO # 0.1 10^3/uL (0.0-0.2); BASO % 1.1 % (0.0-1.0); EOS # 0.1 10^3/uL (0.0-0.5); EOS % 1.7 % (0.0-3.0); HEMATOCRIT 30.6 % (42.0-52.0); HEMOGLOBIN 10.6 g/dl (13.5-17.5); LYMPH # 1.4 10^3/uL (1.5-5.0); LYMPH % 26.6 % (24.0-44.0); MEAN CORPUSCULAR HEMOGLOBIN 36.7 pg (27.0-33.0); MEAN CORPUSCULAR HGB CONC 34.6 g/dl (32.0-36.5); MEAN CORPUSCULAR VOLUME 105.9 fl (80.0-96.0); MONO # 0.6 10^3/uL (0.0-0.8); MONO % 11.9 % (2.0-8.0); NEUTROPHILS % 58.1 % (36.0-66.0); PLATELET COUNT, AUTOMATED 121 10^3/uL (150-450); RED BLOOD COUNT 2.89 10^6/uL (4.30-6.10); WHITE BLOOD COUNT 5.2 10^3/uL (4.0-10.0)
[2022-11-03 11:06] LABS: ALBUMIN 2.8 G/DL (3.2-5.2); BILIRUBIN,TOTAL 1.2 MG/DL (0.3-1.2); CALCIUM LEVEL 9.2 MG/DL (8.3-10.6); CREATININE FOR GFR 1.37 MG/DL (0.70-1.30); GLOMERULAR FILTRATION RATE 54.4 (>42); POTASSIUM SERUM 4.3 MMOL/L (3.5-5.1); TOTAL PROTEIN 5.5 G/DL (5.7-8.2)
== END ==
LOC: M WUC 08:11
PROVIDERS: ATTEND Nurse Practitioner Family
DX: C22.0 Liver cell carcinoma (principal)

== ENCOUNTER → 2022-12-26 | Outpatient (CLI) | payer MEDICARE, MEDICAID ==
[2022-12-26 11:07] LABS: CREATININE FOR GFR 1.31 MG/DL (0.70-1.30); GLOMERULAR FILTRATION RATE 57.3 (>42)
== END ==
LOC: M LAB 09:52
PROVIDERS: ATTEND Otolaryngology
DX: H90.3 Sensorineural hearing loss, bilateral (principal)

== ENCOUNTER → 2023-01-08 | Outpatient (CLI) | payer MEDICARE, MEDICAID | LOC: M PLARAD 14:08 | PROVIDERS: ATTEND Otolaryngology | DX: H90.3 Sensorineural hearing loss, bilateral (principal); I67.82 Cerebral ischemia ==

== ENCOUNTER → 2023-02-10 | Outpatient (CLI) | payer MEDICARE, MEDICAID ==
[2023-02-10 12:12] LABS: HEMATOCRIT 29.8 % (42.0-52.0); HEMOGLOBIN 10.3 g/dl (13.5-17.5); MEAN CORPUSCULAR HGB CONC 34.6 g/dl (32.0-36.5); MEAN CORPUSCULAR VOLUME 104.2 fl (80.0-96.0); PLATELET COUNT, AUTOMATED 115 10^3/uL (150-450); RED BLOOD COUNT 2.86 10^6/uL (4.30-6.10); WHITE BLOOD COUNT 5.8 10^3/uL (4.0-10.0)
[2023-02-10 12:36] LABS: INR 1.45; PROTHROMBIN TIME 17.3 SECONDS (12.5-14.5)
[2023-02-10 12:41] LABS: ALBUMIN 2.6 G/DL (3.2-5.2); ALKALINE PHOSPHATASE 96 U/L (46-116); ALT/SGPT 17 U/L (7.0-40); AST/SGOT 30 U/L (<34); BILIRUBIN,TOTAL 1.7 MG/DL (0.3-1.2); BLOOD UREA NITROGEN 15 MG/DL (9-23); CALCIUM LEVEL 8.9 MG/DL (8.3-10.6); CARBON DIOXIDE LEVEL 25 MMOL/L (20-31); CHLORIDE LEVEL 104 MMOL/L (98-107); CREATININE FOR GFR 1.24 MG/DL (0.70-1.30); GLOMERULAR FILTRATION RATE > 60.0 (>42); GLUCOSE, FASTING 110 MG/DL (74-106); POTASSIUM SERUM 4.2 MMOL/L (3.5-5.1); SODIUM LEVEL 135 MMOL/L (136-145); TOTAL PROTEIN 5.4 G/DL (5.7-8.2)
== END ==
LOC: M WUC 10:07
PROVIDERS: ATTEND Internal Medicine Gastroenterology
DX: K70.30 Alcoholic cirrhosis of liver without ascites (principal); G93.40 Encephalopathy, unspecified; I85.11 Secondary esophageal varices with bleeding; R16.0 Hepatomegaly, not elsewhere classified

== ENCOUNTER 2023-11-23 07:45 | Emergency (ER) | payer MEDICARE, MEDICAID ==
[~2023-11-23] VITALS: Ht 170.2 cm; Wt 70.6 kg
[~2023-11-23 07:45] MED LIST changes: +MEPH5TAB6 PO; -PHYT5TA PO
[2023-11-23] MEDS ORDERED: SODIUM CHLORIDE 0.9% INJ 10 ML SYR IV PRN (08:20)
[2023-11-23 09:20] LABS: BASO % 0.7 % (0.0-1.0); EOS # 0.1 10^3/uL (0.0-0.5); EOS % 1.3 % (0.0-3.0); HEMATOCRIT 32.4 % (42.0-52.0); HEMOGLOBIN 11.7 g/dl (13.5-17.5); LYMPH # 1.4 10^3/uL (1.5-5.0); MEAN CORPUSCULAR HEMOGLOBIN 38.7 pg (27.0-33.0); MEAN CORPUSCULAR HGB CONC 36.1 g/dl (32.0-36.5); MEAN CORPUSCULAR VOLUME 107.3 fl (80.0-96.0); MONO # 0.4 10^3/uL (0.0-0.8); MONO % 7.4 % (2.0-8.0); NEUTROPHILS # 3.6 10^3/uL (1.5-8.5); NEUTROPHILS % 65.1 % (36.0-66.0); PLATELET COUNT, AUTOMATED 130 10^3/uL (150-450); RED BLOOD COUNT 3.02 10^6/uL (4.30-6.10); WHITE BLOOD COUNT 5.5 10^3/uL (4.0-10.0)
[2023-11-23 09:34] LABS: ALBUMIN 2.8 G/DL (3.2-5.2); BILIRUBIN,DIRECT 0.6 MG/DL (<0.4); BILIRUBIN,TOTAL 1.5 MG/DL (0.3-1.2); TOTAL PROTEIN 6.1 G/DL (5.7-8.2)
[2023-11-23] MEDS ORDERED: ISOVUE-370 76% 100ML VIAL As Ordered ONE (10:00)
[2023-11-23 13:06] VITALS: BP 142/64; TEMP 97.7; O2SAT 98
== END 2023-11-23 13:08 | disposition home or self-care (01) ==
LOC: M ED 07:45
DX: R10.9 Unspecified abdominal pain (principal); K80.00 Calculus of gallbladder with acute cholecystitis without obstruction; E87.1 Hypo-osmolality and hyponatremia; J90 Pleural effusion, not elsewhere classified; K57.30 Diverticulosis of large intestine without perforation or abscess without bleeding; C22.0 Liver cell carcinoma; I10 Essential (primary) hypertension; K74.60 Unspecified cirrhosis of liver; Z79.2 Long term (current) use of antibiotics; Z79.810 Long term (current) use of selective estrogen receptor modulators (SERMs); Z79.811 Long term (current) use of aromatase inhibitors; Z79.899 Other long term (current) drug therapy; N28.1 Cyst of kidney, acquired
CPT/HCPCS: 74177; 80047; 80076; 81001; 83605; 83690; 85025; 87040; 96374; 99284; Q9967

== ENCOUNTER 2024-01-26 13:08 | Emergency (ER) | payer MEDICARE, MEDICAID ==
[~2024-01-26] VITALS: Ht 170.2 cm; Wt 74.5 kg
[2024-01-26 13:09] VITALS: BP 158/74; TEMP 98.2; O2SAT 99
== END 2024-01-26 14:55 | disposition left against medical advice (07) ==
LOC: M ED 13:08
DX: Z53.21 Procedure and treatment not carried out due to patient leaving prior to being seen by health care provider (principal)

== ENCOUNTER → 2024-01-26 | Outpatient (REF) | payer MEDICARE, MEDICAID ==
[2024-01-26 18:45] LABS: ALBUMIN 2.4 G/DL (3.2-5.2); BILIRUBIN,DIRECT 0.8 MG/DL (<0.4); BILIRUBIN,TOTAL 1.9 MG/DL (0.3-1.2); TOTAL PROTEIN 5.1 G/DL (5.7-8.2)
== END ==
LOC: M LAB REF 17:35
PROVIDERS: ATTEND Nurse Practitioner Family
DX: K70.30 Alcoholic cirrhosis of liver without ascites (principal)

== ENCOUNTER → 2024-03-28 | Outpatient (CLI) | payer MEDICARE, MEDICAID ==
[2024-03-28 11:39] LABS: BASO # 0.1 10^3/uL (0.0-0.2); BASO % 1.2 % (0.0-1.0); EOS # 0.1 10^3/uL (0.0-0.5); EOS % 2.6 % (0.0-3.0); HEMATOCRIT 28.8 % (42.0-52.0); HEMOGLOBIN 9.8 g/dl (13.5-17.5); LYMPH % 19.7 % (24.0-44.0); MEAN CORPUSCULAR HEMOGLOBIN 36.7 pg (27.0-33.0); MEAN CORPUSCULAR VOLUME 107.9 fl (80.0-96.0); MONO # 0.7 10^3/uL (0.0-0.8); MONO % 13.6 % (2.0-8.0); NEUTROPHILS # 3.2 10^3/uL (1.5-8.5); NEUTROPHILS % 62.5 % (36.0-66.0); PLATELET COUNT, AUTOMATED 142 10^3/uL (150-450); RED BLOOD COUNT 2.67 10^6/uL (4.30-6.10); WHITE BLOOD COUNT 5.1 10^3/uL (4.0-10.0)
[2024-03-28 12:11] LABS: ALBUMIN 2.4 G/DL (3.2-5.2); BILIRUBIN,TOTAL 2.1 MG/DL (0.3-1.2); CHOLESTEROL RISK RATIO 4.61 (<5); CREATININE FOR GFR 1.5 MG/DL (0.70-1.30); FOLATE 7.2 NG/ML (>5.4); GLOMERULAR FILTRATION RATE 48.7 (>42); HDL CHOLESTEROL 43.3 MG/DL (>40); LDL CHOLESTEROL 130.5 MG/DL (<100); NON-HDL-C 156.7 MG/DL; POTASSIUM SERUM 4.2 MMOL/L (3.5-5.1); THYROID STIMULATING HORMONE 3.379 uIU/ML (0.55-4.78); TOTAL 25(OH) VITAMIN D 38.8 NG/ML (20.0-100.0); TOTAL PROTEIN 5.9 G/DL (5.7-8.2)
[2024-03-29 11:01] LABS: Estimated Ave Glu(eAG) 4.6 mmol/L; Hemoglobin A1c 4.5 (<5.7)
== END ==
LOC: M PLALAB 07:53
PROVIDERS: ATTEND Student in an Organized Health Care Education/Training Program
DX: E55.9 Vitamin D deficiency, unspecified (principal); C22.0 Liver cell carcinoma; I95.1 Orthostatic hypotension; Z76.89 Persons encountering health services in other specified circumstances; Z79.899 Other long term (current) drug therapy